=== PATIENT | female | born 1960 | race Caucasian/White ===

== ENCOUNTER 2023-11-26 13:49 | Outpatient (CLI) | payer BC, SELFPAY | END 2023-11-26 13:50 | disposition home or self-care (01) | PROVIDERS: PCP Family Medicine; Visit Provider Emergency Medicine | DX: E03.9 Hypothyroidism, unspecified (principal); R20.2 Paresthesia of skin; R07.9 Chest pain, unspecified; E11.9 Type 2 diabetes mellitus without complications; I10 Essential (primary) hypertension | CPT/HCPCS: 82607; 84443 ==

== ENCOUNTER 2023-12-04 07:42 | Outpatient (CLI) | payer BC, SELFPAY | END 2023-12-04 07:43 | disposition home or self-care (01) | LOC: RAD 07:44 | PROVIDERS: PCP Emergency Medicine; Visit Provider Emergency Medicine | DX: R94.31 Abnormal electrocardiogram [ECG] [EKG] (principal) | CPT/HCPCS: 93306 ==

== ENCOUNTER 2023-12-05 14:30 | Outpatient (CLI) | payer BC, SELFPAY ==
[2023-12-05 16:09] VITALS: BP 150/68; PULSE 91; RESP 18
--- NOTE | 2023-12-05 16:17 | W.PM.STED ---
Stress Test Note Date Date of test: 12/05/23 Providers Primary care provider: Emily Larson Stress test physician: Dinh Conn Stress Test Note Stress test ordered: Stress Echo Indication for test: abnormal ekg Stress test medicine: Definity Results discussion: Patient is a very nice 63-year-old lady who presents for the above test, discussion the risks benefits side effects she would like to proceed, cardiac stress test medical history form is reviewed, preliminary EKG is reviewed, her ventricular rate is 101 her rhythm is sinus, blood pressure elevated at 172/80. She does have a right bundle branch block configuration, with some diffuse ST wave changes. Standard Tre protocol is employed, over a time course of 5 minutes 2nd, she achieved a metabolic equivalent of 7 Mets. Test is terminated because of fatigue. She did not have any anginal equivalent symptoms, no specific ST wave changes suggestive of ischemia is noted. There is no dysrhythmias. Conditioning was felt to be poor. Impression: Negative electrographic tracing of stress echo, Follow up suggested: Await echo images, clinical correlation with this will be needed, she left this testing facility in good condition.
[2023-12-05] MEDS: PERFLUTREN LIPID MICROSPHERES 2 ML VIAL IV (16:20)
== END 2023-12-05 16:10 | disposition home or self-care (01) ==
LOC: STRESS 14:32
PROVIDERS: PCP Emergency Medicine; Visit Provider Family Medicine
DX: R94.31 Abnormal electrocardiogram [ECG] [EKG] (principal); R07.9 Chest pain, unspecified
CPT/HCPCS: 93016; 93325; 93351; Q9957

== ENCOUNTER 2024-07-27 10:21 | Emergency (ER) | payer BC, SELFPAY ==
[2024-07-27 10:25] VITALS: BP 176/83; PULSE 90; RESP 16; TEMP 36.3; O2SAT 98; BMI 33.3
--- NOTE | 2024-07-27 10:52 | CRLHL7_ITS ---
For Patients: As a result of the Century Cures Act, medical imaging exams and procedure reports are released immediately into your electronic medical record. You may view this report before your referring provider. If you have questions, please contact your health care provider. INDICATION: Headache, blurry vision. TECHNIQUE: CTA head with contrast bolus tracking, 3D angiographic rendering using maximum intensity projection (MIP) and images permanently archived. FINDINGS: There is scattered intracranial atherosclerotic disease. There is irregular plaque around both carotid siphons. There is a moderate stenosis at the distal aspect of the cavernous segment of the right internal carotid artery. There is no emergent large vessel occlusion. No aneurysm is identified. IMPRESSION: No acute intracranial abnormality at CTA. Please note that all CT scans at this facility use dose modulation, iterative reconstruction, and/or weight-based dosing when appropriate to reduce radiation dose to as low as reasonably achievable. Dictated by Alexander Vinson MD @ 07/27/2024 2:53:47 PM (Electronically Signed)
--- NOTE | 2024-07-27 10:52 | CRLHL7_ITS ---
For Patients: As a result of the Century Cures Act, medical imaging exams and procedure reports are released immediately into your electronic medical record. You may view this report before your referring provider. If you have questions, please contact your health care provider. INDICATION: Head pain right gnosticist, blurred vision for 7 days TECHNIQUE: CT head without contrast. COMPARISON: Concurrent head and neck CTA FINDINGS: CSF spaces: Within normal limits for age. Brain parenchyma and extra-axial spaces: The perera-white differentiation is normal. No sign of mass, hemorrhage, or midline shift. No extra-axial fluid collection. Skull base and calvarium: The visualized paranasal sinuses and mastoid air cells demonstrate no acute or significant findings. The visualized orbits are grossly unremarkable. No skull fractures. IMPRESSION: Unremarkable noncontrast head CT. Please see concurrent head and neck CTA for further findings. Please note that all CT scans at this facility use dose modulation, iterative reconstruction, and/or weight-based dosing when appropriate to reduce radiation dose to as low as reasonably achievable. Dictated by Roula Lee MD @ 07/27/2024 12:27:06 PM (Electronically Signed)
--- NOTE | 2024-07-27 10:52 | CRLHL7_ITS ---
For Patients: As a result of the Century Cures Act, medical imaging exams and procedure reports are released immediately into your electronic medical record. You may view this report before your referring provider. If you have questions, please contact your health care provider. INDICATION: Headache, blurry vision. TECHNIQUE: CTA neck with contrast bolus tracking, 3D angiographic rendering using maximum intensity projection (MIP) and images permanently archived. FINDINGS: There is minor carotid atherosclerosis. There is no significant carotid artery stenosis or dissection. There is no significant vertebral artery stenosis or dissection. The soft tissues of the neck are within normal limits. The cervical spine is in normal alignment. Degenerative changes are noted in the cervical spine. IMPRESSION: No significant carotid or vertebral artery stenosis or dissection. Please note that all CT scans at this facility use dose modulation, iterative reconstruction, and/or weight-based dosing when appropriate to reduce radiation dose to as low as reasonably achievable. Dictated by Alexander Vinson MD @ 07/27/2024 2:56:00 PM (Electronically Signed)
--- NOTE | 2024-07-27 10:54 | ED_ITS ---
HPI - General Adult General Date Seen: 07/27/24 Chief complaint: Headache/Migraine Stated complaint: migraine/vision abnormal labs Time Seen by Provider: 07/27/24 10:40 Source: patient, RN notes reviewed and old records reviewed Mode of arrival: ambulatory Limitations: no limitations History of Present Illness HPI narrative: Patient is a 64-year-old woman here for evaluation of right temporal headache. She says symptoms started last Saturday, 1 week ago, with sudden onset of severe headache associated with several episodes of vomiting. She notes that she had tunnel vision which she feels was primarily in her left eye as well as both eyes feeling somewhat blurry. She says the headache persisted throughout the day Saturday and Saturday, she slept from 1:00 p.m. on Saturday until the next morning. By Saturday the headache was improved and she says Saturday and she felt pretty good. Symptoms returned on Saturday morning with tunnel vision, blurred vision and right temporal headache. She has not had further vomiting but she has had nausea. No diplopia. The headache waxes and wanes throughout the day, no particular pattern. She denies trauma, fevers, rashes, other neurol ogic changes. She does have a diagnosis of type 2 diabetes, she discontinued her metformin a year ago because she said she read online that it was not good for you. She went to clinic this morning 1st, was noted to have a blood sugar of 400 and was sent here for further evaluation. She does not generally get headaches. She denies tobacco or alcohol use. Here with her . Related Data Previous Rx's ?Medication ?Instructions ?Recorded levothyroxine 137 mcg tablet 137 mcg PO QDAY #90 tabs 11/27/23 metformin 500 mg tablet 500 mg PO BID #60 tabs 07/27/24 Allergies Allergy/AdvReac Type Severity Reaction Status Date / Time No Known Drug Allergies Allergy Verified 07/27/24 12:06 Review of Systems Status of ROS: Reports: 10 or more systems reviewed and unremarkable except as noted in History and below [facility] Medical History Blurry vision ?H53.8 - Other visual disturbances (ICD-10) Elevated glucose ?R73.09 - Other abnormal glucose (ICD-10) Headache ?R51.9 - Headache, unspecified (ICD-10) Abnormal electrocardiogram [ECG] [EKG] ?R94.31 - Abnormal electrocardiogram [ECG] [EKG] (ICD-10) Hypertension ?I10 - Essential (primary) hypertension (ICD-10) Paresthesia ?R20.2 - Paresthesia of skin (ICD-10) Type 2 diabetes mellitus ?E11.9 - Type 2 diabetes mellitus without complications (ICD-10) Uncontrolled type 2 diabetes mellitus Chest pain ?R07.9 - Chest pain, unspecified (ICD-10) Controlled type 2 diabetes mellitus ?E11.9 - Type 2 diabetes mellitus without complications (ICD-10) Body mass index (BMI) of 30.0 to 39.9 Surgical History Status post cholecystectomy ?Z90.49 - Acquired absence of other specified parts of digestive tract (ICD- 10) History of cholecystectomy ?Z90.49 - Acquired absence of other specified parts of digestive tract (ICD- 10) Family History Father Coronary artery disease A-fib Sister Pancreatic cancer Son Nephritis Kidney transplanted Social History Narrative: 7 children Smoking Status: Never smoker Do you use any of these nicotine containing products: None How many standard drinks containing alcohol do you have on a typical day: 3 or 4 How often do you have six or more drinks on one occasion: Daily or almost daily AUDIT-C Alcohol total score: 5 Non-prescribed substance use: denies use service: No Exam Narrative: Exam Narrative: Vital signs reviewed In general, alert, nontoxic woman. She looks comfortable. Head: Normocephalic, atraumatic. Eyes: Sclera clear. Pupils equal and reactive. Extraocular movements are full, no nystagmus. ENT: Mucous membranes moist. Neck: Supple without adenopathy. Heart: Regular rate and rhythm without murmur. Lungs: Clear. No increased work of breathing, crackles or wheezes. Abdomen: Soft, nontender to palpation. Extremities: Well perfused, pulses intact. No significant edema. Neurologic: Alert, conversant. Speech fluent, face symmetric. Moves all extremities equally. Cerebellar function intact with finger-nose testing. Visual naranjo are full to confrontation bilaterally. Skin: Warm, dry well perfused. Affect: Normal. Const: Vital Signs, click to edit/add: Vital Signs - 24 hr 07/27/24 10:25 07/27/24 11:30 07/27/24 12:00 Temperature 97.3 F L Pulse Rate [Pulse Oximeter] 90 Respiratory Rate 16 18 Blood Pressure [Ri ght Upper Arm] 176/83 H 148/87 H 149/76 H Pulse Oximetry 98 94 95 Oxygen Delivery Me thod Room Air Room Air Room Air Course Course ED Course: Will place an IV and give medications to help control headache. CT without contrast is ordered to evaluate for possible hemorrhage, I have also ordered a CT angiogram given the stuttering nature of these symptoms. She does not have any neurologic deficit at this time. I have ordered blood work as well, blood sugar was just over 400 at clinic, will assess for other metabolic derangement, evidence of infection, also consider temporal arteritis with CRP and sed rate. Her blood work is overall unremarkable. Normal white blood cell count and diff, normal gas, blood sugars elevated at 330 remainder of her metabolic panel is normal. LFTs are unremarkable CRP is 0.5. Imaging shows by my review and normal head CT. Read as normal by Radiology, read link below. CT angiogram of the head and neck were also read as negative. Case was discussed with Neurology on-call had Donna Cutler. He feels that intracranial hemorrhage is an unlikely cause for her symptoms, he suspects her hyperglycemia may be contributing. Certainly this may be giving her the sensation of blurred vision. Vision was 20 40 in both eyes and visual naranjo were full. No evidence of an ischemic event. CT angiogram does not show evidence of venous sinus thrombosis. Inflammatory markers are negative. She feels significantly improved after medications. I think it is reasonable to let her go home. I prescribed metformin for her, I have reviewed with her the importance of blood sugar control for her health. If she truly does not want to take metformin I have encouraged her to talk with her primary doctor so that they can decide on a different medication. Return any time for acute worsening or new symptoms. Vital Signs Vital signs: Initial Vital Signs Temperature 97.3 F L 07/27/24 10:25 Temperature Source Temporal Artery Scan 07/27/24 10:25 Pulse Rate 90 07/27/24 10:25 Respiratory Rate 16 07/27/24 10:25 Blood Pressure 176/83 H 07/27/24 10:25 Blood Pressure Mean 114 H 07/27/24 10:25 Blood Pressure Position Sitting 07/27/24 10:25 Pulse Oximetry 98 07/27/24 10:25 Oxygen Delivery Method Room Air 07/27/24 10:25 Vital Signs Temperature 97.3 F L 07/27/24 10:25 Pulse Rate 90 07/27/24 10:25 Respiratory Rate 16 07/27/24 10:25 Blood Pressure 176/83 H 07/27/24 10:25 Pulse Oximetry 98 07/27/24 10:25 Oxygen Delivery Method Room Air 07/27/24 10:25 Temperature 97.3 F L 07/27/24 10:25 Pulse Rate 90 07/27/24 10:25 Respiratory Rate 18 07/27/24 12:00 Blood Pressure 149/76 H 07/27/24 12:00 Pulse Oximetry 95 07/27/24 12:00 Oxygen Delivery Method Room Air 07/27/24 12:00 Medications Administered Medications: Discontinued Medications Generic Name Dose Route Start Last Admin Trade Name Noelq PRN Reason Stop Dose Admin Diphenhydramine HCl 25 mg 07/27/24 10:52 07/27/24 11:25 Diphenhydramine 50 Mg/Ml Inj IVP 07/27/24 10:53 25 mg ONCE ONE Administration Metoclopramide HCl 10 mg/ 102 mls @ 306 mls/hr 07/27/24 10:52 07/27/24 12:05 Sodium Chloride IVPB 07/27/24 10:53 Infused ONCE ONE Infusion Morphine Sulfate 4 mg 07/27/24 10:52 07/27/24 11:25 Morphine 4 Mg/Ml Inj IVP 07/27/24 10:53 4 mg ONCE ONE Administration Medical Decision Making Lab Data Labs: Lab Results 07/27/24 Range/Units 11:06 WBC 9.07 (4.50-11.00) K/uL RBC 5.19 (4.00-5.20) m/uL Hgb 16.2 H (12.0-16.0) gm/dL Hct 48.8 (33.0-51.0) % MCV 94 (80-100) fL MCH 31 (26-34) pg MCHC 33 (32-36) gm/dL RDW Coeff of Keyur 12.1 (11.5-15.5) % Plt Count 332 (140-440) K/uL Neut % (Auto) 58.9 (42.0-72.0) % Lymph % (Auto) 33.1 (20-44) % [place] % (Auto) 6.6 (0.0-11.0) % Eos % (Auto) 1.0 (0.0-7.0) % Baso % (Auto) 0.4 (0.0-3.0) % Neut # (Auto) 5.34 (1.7-7.0) K/uL Lymph # (Auto) 3.00 H (0.90-2.90) K/uL [place] # (Auto) 0.60 (0.00-0.90) K/UL Eos # (Auto) 0.09 (0.00-0.50) K/uL Baso # (Auto) 0.04 (0.00-0.30) K/uL Abs Immat Gran (auto) 0.00 (0.00-0.30) K/uL Imm/Tot Granulo (auto) 0.0 % ESR 16 (2-20) mm/hr VBG pH 7.400 (7.32-7.43) VBG pCO2 46 (40-50) mmHG VBG pO2 31.7 (25-47) mmHG VBG HCO3 28 (21-28) mmol/L Sodium 135 (135-149) mmol/L Potassium 4.2 (3.6-5.1) mmol/L Chloride 100 (96-114) mmol/L Carbon Dioxide 26 (20-32) mmol/L Anion Gap 9 (7-15) mEq/L BUN 14 (7-30) mg/dL Creatinine 0.6 (0.5-1.5) mg/dL Estimated Creat Clear 51.14 Estimated GFR 100 ml/min Glucose 330 H (60-115) mg/dL Calcium 10.1 (8.4-10.6) mg/dL Total Bilirubin 0.8 (0.1-1.5) mg/dL Direct Bilirubin 0.2 (0.0-0.5) mg/dL AST 21 (12-35) U/L ALT 14 (4-35) U/L Alkaline Phosphatase 100 (40-150) U/L C-Reactive Protein 0.5 (0.5-1.0) mg/dL Total Protein 7.9 (6.0-8.3) g/dL Albumin 4.5 (3.3-5.0) g/dL Imaging Data CT scan - head: Attestation: I have reviewed the pertinent imaging results. Radiologist's impression: Patient: DOMONIQUE CALVIN Facility: [facility] [place] Site . Site : 1960 Study: CT-Head WITHOUT NON ACUTE-07/27/2024 12:04:42 PM Ordering Physician: Lucio Newsome Final Report: INDICATION: Head pain right baptist, blurred vision for 7 days TECHNIQUE: CT head without contrast. COMPARISON: Concurrent head and neck CTA FINDINGS: CSF spaces: Within normal limits for age. Brain parenchyma and extra-axial spaces: The perera-white differentiation is normal. No sign of mass, hemorrhage, or midline shift. No extra-axial fluid maximo ection. Skull base and calvarium: The visualized paranasal sinuses and mastoid air cells demonstrate no acute or significant findings. The visualized orbits are grossly unremarkable. No skull fractures. IMPRESSION: Unremarkable noncontrast head CT. Please see concurrent head and neck CTA for further findings. Please note that all CT scans at this facility use dose modulation, iterative reconstruction, and/or weight-based dosing when appropriate to reduce radiation dose to as low as reasonably achievable. Dictated by Roula Lee MD @ 07/27/2024 12:27:06 PM Patient: DOMONIQUE CALVIN Facility: [facility] [place] [facility] . Site : 1960 Study: CT-Head Angio 95CC ISOVUE 370 NON ACUTE-07/27/2024 12:05:11 PM Ordering Physician: Lucio Newsome Final Report: INDICATION: Headache, blurry vision. TECHNIQUE: CTA head with contrast bolus tracking, 3D angiographic rendering using maximum intensity projection (MIP) and images permanently archived. FINDINGS: There is scattered intracranial atherosclerotic disease. There is irregular plaque around both carotid siphons. There is a moderate stenosis at the distal aspect of the cavernous segment of the right internal carotid artery. There is no emergent large vessel occlusion. No aneurysm is identified. IMPRESSION: No acute intracranial abnormality at CTA. Please note that all CT scans at this facility use dose modulation, iterative reconstruction, and/or weight-based dosing when appropriate to reduce radiation dose to as low as reasonably achievable. Dictated by Alexander Vinson MD @ 07/27/2024 2:53:47 PM Patient: DOMONIQUE CALVIN Facility: [facility] [place] [facility] . Site : 1960 Study: CT-Neck Angio Angio 95CC ISOVUE 370 NON ACUTE-07/27/2024 12:05:51 PM Ordering Physician: Lucio Newsome Final Report: INDICATION: Headache, blurry vision. TECHNIQUE: CTA neck with contrast bolus tracking, 3D angiographic rendering using maximum intensity projection (MIP) and images permanently archived. FINDINGS: There is minor carotid atherosclerosis. There is no significant carotid artery stenosis or dissection. There is no significant vertebral artery stenosis or dissection. The soft tissues of the neck are within normal limits. The cervical spine is in normal alignment. Degenerative changes are noted in the cervical spine. IMPRESSION: No significant carotid or vertebral artery stenosis or dissection. Please note that all CT scans at this facility use dose modulation, iterative reconstruction, and/or weight-based dosing when appropriate to reduce radiation dose to as low as reasonably achievable. Dictated by Alexander Vinson MD @ 07/27/2024 2:56:00 PM Discharge Plan Discharge Clinical Impression: Headache, Uncontrolled diabetes mellitus Instructions: General Headache (ED) Additional Instructions: I would recommend that you restart your metformin. Uncontrolled diabetes is far worse for you than metformin, and your elevated blood sugars are likely contributor to these headaches. Your imaging and blood work is otherwise reassuring. Please follow-up with your primary care clinic for further evaluation and discussion of blood sugar control. Return any time for severe worsening symptoms. l Prescriptions: New metformin 500 mg tablet 500 mg PO BID Qty: 60 2RF No Action levothyroxine 137 mcg tablet 137 mcg PO QDAY Qty: 90 3RF Follow Up/Referrals: Emiyl Larson MD [Primary Care Provider] - Stand Alone Forms: [employer]Sageth Info Instructions
[2024-07-27 11:22] LABS: HCO3 VBG 28 mmol/L (21-28); PCO2 VBG 46 mmHG (40-50); PO2 VBG 31.7 mmHG (25-47)
[2024-07-27] MEDS: MORPHINE 4 MG/ML INJ IVP (11:25)
[2024-07-27] MEDS: diphenhydrAMINE 50 MG/ML inj 25 MG IVP (11:25)
[2024-07-27 11:30] VITALS: BP 148/87; O2SAT 94
[2024-07-27 11:32] LABS: Basophils Absolute Auto 0.04 K/uL (0.00-0.30); Basophils Percent Auto 0.4 % (0.0-3.0); Eosinophils Absolute Auto 0.09 K/uL (0.00-0.50); Hematocrit 48.8 % (33.0-51.0); Hemoglobin* 16.2 gm/dL (12.0-16.0); Lymphocytes Percent Auto 33.1 % (20-44); Mean Corpuscular HGB Conc 33 gm/dL (32-36); Mean Corpuscular Hemoglobin 31 pg (26-34); Mean Corpuscular Volume 94 fL (80-100); Monocytes Percent Auto 6.6 % (0.0-11.0); Neutrophils Absolute Auto 5.34 K/uL (1.7-7.0); Neutrophils Percent Auto 58.9 % (42.0-72.0); Platelet Count* 332 K/uL (140-440); RDW Coefficient of Variation % 12.1 % (11.5-15.5); Red Blood Count 5.19 m/uL (4.00-5.20); White Blood Count* 9.07 K/uL (4.50-11.00)
[2024-07-27] MEDS: METOCLOPRAMIDE HCL 10 MG in 0.9 % SODIUM CHLORIDE 100 ml 100 ML 306 MG IVPB (11:33)
[2024-07-27 11:38] LABS: Slide Review Reflex No
[2024-07-27 11:47] LABS: Chloride* 100 mmol/L (96-114)
[2024-07-27 11:48] LABS: Albumin* 4.5 g/dL (3.3-5.0); Potassium* 4.2 mmol/L (3.6-5.1); Sodium* 135 mmol/L (135-149)
[2024-07-27 11:51] LABS: Alanine Aminotransferase* 14 U/L (4-35); Alkaline Phosphatase* 100 U/L (40-150); Anion Gap 9 mEq/L (7-15); Aspartate Amino Transferase* 21 U/L (12-35); Bilirubin Direct* 0.2 mg/dL (0.0-0.5); Bilirubin Total* 0.8 mg/dL (0.1-1.5); Blood Urea Nitrogen* 14 mg/dL (7-30); Calcium* 10.1 mg/dL (8.4-10.6); Carbon Dioxide* 26 mmol/L (20-32); Creatinine* 0.6 mg/dL (0.5-1.5); Est. Creatinine Clearance* 51.14; Estimated Glomerular Filt Rate 100 ml/min; Glucose* 330 mg/dL (60-115); Total Protein* 7.9 g/dL (6.0-8.3)
[2024-07-27 11:54] LABS: C Reactive Protein* 0.5 mg/dL (0.5-1.0)
[2024-07-27 12:00] VITALS: BP 149/76; RESP 18; O2SAT 95
[2024-07-27 12:41] LABS: Erythrocyte SedimentationRate* 16 mm/hr (2-20)
== END 2024-07-27 13:20 | disposition home or self-care (01) ==
PROVIDERS: Emergency Provider Emergency Medicine; PCP Emergency Medicine
DX: R51.9 Headache, unspecified (principal); E11.65 Type 2 diabetes mellitus with hyperglycemia
CPT/HCPCS: 36415; 70450; 70496; 70498; 80048; 80076; 82803; 85025; 85651; 86140; 96365; 96375; 99284; 99285; J1200; J2270; J2765; Q9967

== ENCOUNTER 2024-10-27 15:00 | Outpatient (CLI) | payer BC, SELFPAY | END 2024-10-27 15:01 | disposition home or self-care (01) | PROVIDERS: PCP Emergency Medicine; Visit Provider Emergency Medicine | DX: R10.12 Left upper quadrant pain (principal); I10 Essential (primary) hypertension; E03.9 Hypothyroidism, unspecified; E78.5 Hyperlipidemia, unspecified; R73.09 Other abnormal glucose; E11.9 Type 2 diabetes mellitus without complications; E88.810 Metabolic syndrome | CPT/HCPCS: 80053; 80061; 83690; 84443; 87086 ==

== ENCOUNTER 2025-01-20 15:25 | Outpatient (CLI) | payer BC, SELFPAY | END 2025-01-20 15:26 | disposition home or self-care (01) | PROVIDERS: PCP Emergency Medicine; Visit Provider Emergency Medicine | DX: E11.65 Type 2 diabetes mellitus with hyperglycemia (principal); M79.604 Pain in right leg; M79.605 Pain in left leg; Z79.84 Long term (current) use of oral hypoglycemic drugs; Z13.21 Encounter for screening for nutritional disorder | CPT/HCPCS: 80053; 82043; 82550; 82570; 82607; 86140 ==

== ENCOUNTER 2025-06-11 10:42 | Outpatient (CLI) | payer BC, SELFPAY | END 2025-06-11 10:43 | disposition home or self-care (01) | PROVIDERS: PCP Physician Assistant Medical; Visit Provider Physician Assistant Medical | DX: R19.00 Intra-abdominal and pelvic swelling, mass and lump, unspecified site (principal) | CPT/HCPCS: 80053; 82607 ==

== ENCOUNTER 2025-06-17 09:21 | Outpatient (CLI) | payer BC, SELFPAY ==
--- NOTE | 2025-06-17 10:00 | CRLHL7_ITS ---
For Patients: As a result of the Century Cures Act, medical imaging exams and procedure reports are released immediately into your electronic medical record. You may view this report before your referring provider. If you have questions, please contact your health care provider. INDICATION: Abnormal weight loss. Palpable abdominal mass. TECHNIQUE: CT chest, abdomen, and pelvis acquired with 84 mL Isovue 370 IV contrast. COMPARISON: None available. FINDINGS: CHEST: Lungs and pleura: No focal consolidation. Scattered calcified and partially calcified granulomas. Heart and vessels: No cardiomegaly, no pericardial effusion. Thyroid and lower neck: No suspicious thyroid nodule. Mediastinum/alirio: Calcified granulomas. No suspicious lymphadenopathy. Chest wall: No axillary lymphadenopathy. ABDOMEN/PELVIS: Liver: Innumerable ill-defined hypodense lesions throughout the entire liver, compatible with diffuse hepatic metastases. Gallbladder and bile ducts: Post cholecystectomy. Pancreas: Unremarkable. Spleen: Punctate calcified granulomas. Adrenal glands: Unremarkable. Kidneys: Kidneys enhance symmetrically, without hydronephrosis. Retroperitoneum: No lymphadenopathy. Bowel and mesentery: Colonic mass centered at the mid transverse colon measuring approximately 8.0 cm in length, with irregular borders, consistent with primary colonic neoplasm. There are multiple adjacent soft tissue nodules and enlarged mesenteric lymph nodes. There are also enlarged gene hepatis lymph nodes, as well as multiple soft tissue nodules along the peritoneal lining. No evidence of bowel obstruction. Bladder: Mild circumferential bladder wall thickening. Reproductive organs: Lobulated contour of the uterus, likely reflecting underlying subserosal fibroids. Pelvic lymph nodes: Mildly enlarged 0.7 cm left mesorectal lymph node (series 7, image 126). Vessels: Scattered atherosclerotic calcifications. Abdominal wall: No acute abdominal wall abnormality. Bones: Multilevel degenerative changes of the spine. Bones are osteopenic. IMPRESSION: 1. Large colonic mass centered at the mid transverse colon with irregular borders, compatible with primary colonic neoplasm. 2. Diffuse hepatic metastases. 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 3. Mild circumferential urinary bladder wall thickening, correlate with urinalysis. Please note that all CT scans at this facility use dose modulation, iterative reconstruction, and/or weight-based dosing when appropriate to reduce radiation dose to as low as reasonably achievable. Dictated by Dwight Hamlin MD @ 06/17/2025 3:27:31 PM (Electronically Signed)
== END 2025-06-17 09:22 | disposition home or self-care (01) ==
LOC: CT 09:21
PROVIDERS: PCP Physician Assistant Medical; Visit Provider Physician Assistant Medical
DX: R63.4 Abnormal weight loss (principal); K63.9 Disease of intestine, unspecified; K76.0 Fatty (change of) liver, not elsewhere classified; R19.00 Intra-abdominal and pelvic swelling, mass and lump, unspecified site; R29.898 Other symptoms and signs involving the musculoskeletal system
CPT/HCPCS: 71260; 74177; Q9967

== ENCOUNTER 2025-06-24 10:54 | Outpatient (CLI) | payer BC, SELFPAY | END 2025-06-24 10:55 | disposition home or self-care (01) | LOC: NFLDREF 06-30 03:57 | PROVIDERS: PCP Physician Assistant Medical; Referring Provider Physician Assistant Medical; Visit Provider Physician Assistant Medical | DX: C79.9 Secondary malignant neoplasm of unspecified site (principal); K63.89 Other specified diseases of intestine | CPT/HCPCS: 82378 ==

== ENCOUNTER 2025-07-01 10:20 | Outpatient (CLI) | payer BC, SELFPAY | END 2025-07-01 10:21 | disposition home or self-care (01) | PROVIDERS: PCP Physician Assistant Medical; Visit Provider Physician Assistant Medical | DX: Z01.818 Encounter for other preprocedural examination (principal); E03.9 Hypothyroidism, unspecified; R11.10 Vomiting, unspecified | CPT/HCPCS: 80053; 82728; 83540; 83550; 83690; 84443; 87086 ==

== ENCOUNTER 2025-07-02 09:16 | Outpatient (CLI) | payer BC, SELFPAY ==
--- NOTE | 2025-07-02 11:14 | P.ANES_ITS ---
Anesthesia Charges Start Date/Time Anesthesia Start Date: 07/02/25 Anesthesia Start Time: 10:40 Stop Date/Time Anesthesia Stop Date: 07/02/25 Anesthesia Stop Time: 11:13 Coding CPT Codes CPT Codes: ANES LWR INTST NDSC NOS - 58463 ([id number]) QK - JUVENILE COURT LIAISON 2-4 CNCRNT ANES PROC, QX - COOK FRUIT SVC W/ MED DIRECTION, P3 - PATIENT W/SEVERE SYS DISEASE
--- NOTE | 2025-07-02 11:14 | W.ANESCHARGE ---
Anesthesia Charges Start Date/Time Anesthesia Start Date: 07/02/25 Anesthesia Start Time: 10:40 Stop Date/Time Anesthesia Stop Date: 07/02/25 Anesthesia Stop Time: 11:13 Coding CPT Codes CPT Codes: ANES LWR INTST NDSC NOS - 51895 ([id number]) QK - OFFICE TECHNICIAN 2-4 CNCRNT ANES PROC, QX - MGMT SPECIALIST SVC W/ MED DIRECTION, P3 - PATIENT W/SEVERE SYS DISEASE
--- NOTE | 2025-07-02 11:16 | P.ANES_ITS ---
Anesthesia Charges Start Date/Time Anesthesia Start Date: 07/02/25 Anesthesia Start Time: 10:40 Stop Date/Time Anesthesia Stop Date: 07/02/25 Anesthesia Stop Time: 11:13 Coding CPT Codes CPT Codes: ANES LWR INTST NDSC NOS - 14911 ([id number]) P3 - PATIENT W/SEVERE SYS DISEASE, QK - DATA CLERK 2-4 CNCRNT ANES PROC, QX - ONCOLOGY PHYSICIAN SVC W/ MD MED DIRECTION
--- NOTE | 2025-07-02 11:16 | W.ANESCHARGE ---
Anesthesia Charges Start Date/Time Anesthesia Start Date: 07/02/25 Anesthesia Start Time: 10:40 Stop Date/Time Anesthesia Stop Date: 07/02/25 Anesthesia Stop Time: 11:13 Coding CPT Codes CPT Codes: ANES LWR INTST NDSC NOS - 97142 ([id number]) P3 - PATIENT W/SEVERE SYS DISEASE, QK - EPITAXIAL REACTOR TECHNICIAN 2-4 CNCRNT ANES PROC, QX - BIOFUELS RESEARCH SCIENTIST SVC W/ MD MED DIRECTION
== END 2025-07-02 09:17 | disposition home or self-care (01) ==
LOC: OP CLINIC 09:16
PROVIDERS: PCP Physician Assistant Medical; Visit Provider Surgery
DX: C18.3 Malignant neoplasm of hepatic flexure (principal); R93.3 Abnormal findings on diagnostic imaging of other parts of digestive tract; R63.4 Abnormal weight loss; R10.9 Unspecified abdominal pain
CPT/HCPCS: 00811; 45380; 45381; 88305; J2405; J2704

== ENCOUNTER 2025-07-08 13:55 | Outpatient (CLI) | payer BC, SELFPAY ==
--- NOTE | 2025-07-08 14:30 | CRLHL7_ITS ---
For Patients: As a result of the Century Cures Act, medical imaging exams and procedure reports are released immediately into your electronic medical record. You may view this report before your referring provider. If you have questions, please contact your health care provider. INDICATION: Suspected metastatic colon carcinoma. TECHNIQUE: Abdominal MRI T1-T2 and post-contrast T1. Diffusion weighting. Contrast: Intravenous gadolinium Dotarem 15 cc. COMPARISON : CT scan abdomen 06/17/2025 FINDINGS: Liver: Non cirrhotic morphology. Innumerable suspicious lesions throughout the liver heterogeneous irregular central decreased T1 signal and enhancement in the periphery throughout the entire liver. The largest lesion is about 3 centimeters located in IV, example . Biliary tree:Gallbladder is absent. The biliary tree is normal caliber. Spleen, pancreas, adrenal glands: Unremarkable. Kidneys:Unremarkable, no masses or hydronephrosis. Lymph nodes: No retroperitoneal adenopathy. Borderline enlarged supradiaphragmatic lymph node in the midline at the level of the xiphoid . Miscellaneous: Large appears to be a very large circumferential annular lesion with extra colonic extension from the mid transverse colon 10 x 7 centimeters. Multiple abnormal enhancing peritoneal nodules. The largest is adjacent to the spleen in the left upper quadrant 2.5 centimeters example . Several scattered nodular peritoneal implants in the left abdomen. IMPRESSION: 1. Large anterior midline abdominal mass favor a primary colonic malignant neoplasm with extra colonic extension. 2. Probable extensive metastatic disease burden within the liver and peritoneal metastases. 3. Medical oncology consultation suggested. Dictated by Cliff Gill MD @ 07/09/2025 12:26:45 PM (Electronically Signed)
== END 2025-07-08 13:56 | disposition home or self-care (01) ==
LOC: MRI 13:56
PROVIDERS: PCP Physician Assistant Medical; Visit Provider Physician Assistant Medical
DX: K63.89 Other specified diseases of intestine (principal); K76.9 Liver disease, unspecified; C79.9 Secondary malignant neoplasm of unspecified site
CPT/HCPCS: 74183; A9575